=== PATIENT | male | born 1975 | race Two or more races ===

== ENCOUNTER 2017-04-08 08:36 | Observation (INO) | payer SELFPAY ==
--- NOTE | 2017-04-08 08:51 | EDPHY ---
H & P Stated Complaint: chills body aches chest pain to back Time Seen by Provider: 04/08/17 08:44 HPI/ROS: CHIEF COMPLAINT: Chills, vomiting, chest pain HISTORY OF PRESENT ILLNESS: The patient is a healthy 41-year-old male who presents to the emergency department after 2 discrete episodes of upper chest pain which radiated to his neck/back. He had an episode 2 days ago which lasted 1 hour. He had an episode that returned earlier today and has been present for the past 3 hours. His symptoms have improved currently based upon his initial reported severity of a 02/13. The patient reports that on he also experienced vomiting and a temperature to 100.5 degrees. The patient denies any recent dental work or infection. The patient denies any travel outside the [place]. The patient has had a slight dry cough. The patient denies abdominal pain or diarrhea. The patient denies any drug or alcohol use. The patient does report a history of heart disease in his father. His father developed coronary disease in his 40s requiring bypass in his 50s. REVIEW OF SYSTEMS: A comprehensive 10 point review of systems is otherwise negative aside from elements mentioned in the history of present illness. Source: Patient Exam Limitations: No limitations - Personal History Current Tetanus/Diphtheria Vaccine: Unsure Current Tetanus Diphtheria and Acellular Pertussis (TDAP): Unsure - Medical/Surgical History Hx Asthma: No Hx Chronic Respiratory Disease: No Hx Diabetes: No Hx Cardiac Disease: No Hx Renal Disease: No Hx Cirrhosis: No Hx Alcoholism: No Hx HIV/AIDS: No Hx Splenectomy or Spleen Trauma: No Other PMH: GERD - Social History Smoking Status: Never smoked - Physical Exam Exam: General Appearance: Alert, no distress Eyes: Pupils equal and round no pallor or injection ENT, Mouth: Mucous membranes moist Respiratory: There are no retractions, lungs are clear to auscultation Cardiovascular: Regular rate and rhythm Gastrointestinal: Abdomen is soft and nontender, no masses, bowel sounds normal Neurological: A&O, normal motor function, normal sensory exam, normal cranial nerves Skin: Warm and dry, no rashes Musculoskeletal: Neck is supple nontender Extremities: symmetrical, full range of motion Constitutional: Initial Vital Signs Temperature (C) 37 C 04/08/17 08:40 Heart Rate 64 04/08/17 08:40 Respiratory Rate 16 04/08/17 08:40 Blood Pressure 133/75 H 04/08/17 08:40 O2 Sat (%) 98 04/08/17 08:40 O2 Delivery Mode Room Air Allergies/Adverse Reactions: No Known Allergies Allergy (Unverified 04/08/17 08:42) Medical Decision Making - Diagnostics EKG Interpretation: EKG: Complete interpretation has been separately recorded in the [employer] archive. Summary impression: Sinus rhythm Imaging Results: Imaging Impressions Chest X-Ray 04/08/17 08:58 Impression: Normal chest. ED Course/Re-evaluation: The patient presents to the ED for evaluation of 2 episodes of chest discomfort. The patient has been symptom free throughout his stay in the ED. His last episode of chest pain began earlier today. The patient's EKG demonstrates no evidence of ischemia the patient's troponin normal x2. Chest x- ray demonstrates no evidence of an acute disease in the remainder of the patient 's laboratory studies and respiratory pathogen panel are normal. I did consult with Dr. Mcginnis from Cardiology given the patient's family history of heart disease. He evaluated the patient in the emergency department and feels we should admitted to the hospital for observation this evening and stress testing tomorrow. Consultation was made with the hospitalist service. The patient will be admitted primarily by Dr. Villegas. Differential Diagnosis: Differential diagnosis considered includes acute coronary syndrome, pericarditis , myocarditis, esophageal spasm, viral syndrome, pneumonia - Data Points Laboratory Results: Laboratory Results 04/08/17 08:55 04/08/17 08:55 04/08/17 04/08/17 04/08/17 10:56 08:55 08:55 WBC 5.78 10^3/uL 10^3/uL (3.80-9.50) RBC 4.98 10^6/uL 10^6/uL (4.40-6.38) Hgb 15.4 g/dL g/dL (13.7-17.5) Hct 44.4 % % (40.0-51.0) MCV 89.2 fL fL (81.5-99.8) MCH 30.9 pg pg (27.9-34.1) MCHC 34.7 g/dL g/dL (32.4-36.7) RDW 12.3 % % (11.5-15.2) Plt Count 230 10^3/uL 10^3/uL (150-400) MPV 9.6 fL fL (8.7-11.7) Neut % (Auto) 59.3 % % (39.3-74.2) Lymph % (Auto) 27.2 % % (15.0-45.0) [place] % (Auto) 11.2 % % (4.5-13.0) Eos % (Auto) 1.7 % % (0.6-7.6) Baso % (Auto) 0.3 % % (0.3-1.7) Nucleat RBC Rel Count 0.0 % % (0.0-0.2) Absolute Neuts (auto) 3.42 10^3/uL 10^3/uL (1.70-6.50) Absolute Lymphs (auto) 1.57 10^3/uL 10^3/uL (1.00-3.00) Absolute Monos (auto) 0.65 10^3/uL 10^3/uL (0.30-0.80) Absolute Eos (auto) 0.10 10^3/uL 10^3/uL (0.03-0.40) Absolute Basos (auto) 0.02 10^3/uL 10^3/uL (0.02-0.10) Absolute Nucleated RBC 0.00 10^3/uL 10^3/uL (0-0.01) Immature Gran % 0.3 % % (0.0-1.1) Immature Gran # 0.02 10^3/uL 10^3/uL (0.00-0.10) Sodium 141 mEq/L mEq/L (134-144) Potassium 3.5 mEq/L mEq/L (3.5-5.2) Chloride 104 mEq/L mEq/L (97-110) Carbon Dioxide 24 mEq/l mEq/l (22-31) Anion Gap 13 mEq/L mEq/L (8-16) BUN 18 mg/dL mg/dL (7-23) Creatinine 0.9 mg/dL mg/dL (0.7-1.3) Estimated GFR > 60 Glucose 103 mg/dL H mg/dL (70-100) Calcium 9.5 mg/dL mg/dL (8.5-10.4) Total Bilirubin Conjugated Bilirubin Unconjugated Bilirubin AST ALT Alkaline Phosphatase Troponin I < 0.012 ng/mL ng/mL < 0.012 ng/mL ng/mL (0.000-0.034) (0.000-0.034) Total Protein Albumin Lipase 04/08/17 08:51 WBC RBC Hgb Hct MCV MCH MCHC RDW Plt Count MPV Neut % (Auto) Lymph % (Auto) [place] % (Auto) Eos % (Auto) Baso % (Auto) Nucleat RBC Rel Count Absolute Neuts (auto) Absolute Lymphs (auto) Absolute Monos (auto) Absolute Eos (auto) Absolute Basos (auto) Absolute Nucleated RBC Immature Gran % Immature Gran # Sodium Potassium Chloride Carbon Dioxide Anion Gap BUN Creatinine Estimated GFR Glucose Calcium Total Bilirubin 0.7 mg/dL mg/dL (0.1-1.4) Conjugated Bilirubin 0.3 mg/dL mg/dL (0.0-0.5) Unconjugated Bilirubin 0.4 mg/dL mg/dL (0.0-1.1) AST 18 IU/L IU/L (17-59) ALT 28 IU/L IU/L (21-72) Alkaline Phosphatase 59 IU/L IU/L (38-126) Troponin I Total Protein 7.3 g/dL g/dL (6.3-8.2) Albumin 4.4 g/dL g/dL (3.5-5.0) Lipase 120 IU/L IU/L (23-300) Microbiology Results: MICROBIOLOGY 04/08/17 09:10 Nasal, Sinus - Swab Respiratory Panel (PCR) - Final No Organism Detected Medications Given: Discontinued Medications Ketorolac Tromethamine (Toradol) 15 mg IVP EDNOW ONE Stop: 04/08/17 11:35 Last Admin: 04/08/17 11:41 Dose: 15 mg Departure - Departure Disposition: [facility] Inpatient Acute Clinical Impression: Acute chest pain Condition: Good Referrals: NONE *PRIMARY CARE P,. [Primary Care Provider] - As per Instructions
--- NOTE | 2017-04-08 08:54 | CPEKG ---
Heart Rate: 55 RR Interval: 1091 P-R Interval: 200 QRSD Interval: 86 QT Interval: 396 QTC Interval: 379 P Cheriton: 66 QRS Cheriton: 81 T Wave Cheriton: 54 EKG Severity - NORMAL ECG - EKG Impression: SINUS RHYTHM Electronically Signed By: David Huston 08-Apr-2017 09:44:18
[2017-04-08 09:07] LABS: % IMMATURE GRANULYOCYTES 0.3 % (0.0-1.1); ABSOLUTE IMMATURE GRANULOCYTES 0.02 10^3/uL (0.00-0.10); ADD DIFF? NO; ADD MORPH? NO; ADD SCAN? NO; ATYPICAL LYMPHOCYTE FLAG 0 (0-99); FRAGMENT RBC FLAG 0 (0-99); HEMATOCRIT 44.4 % (40.0-51.0); HEMOGLOBIN 15.4 g/dL (13.7-17.5); LEFT SHIFT FLG 0 (0-99); LIPEMIA HEMOLYSIS FLAG 90 (0-99); MEAN CELL HEMOGLOBIN 30.9 pg (27.9-34.1); MEAN CELL HEMOGLOBIN CONCENTR. 34.7 g/dL (32.4-36.7); MEAN CELL VOLUME 89.2 fL (81.5-99.8); MEAN PLATELET VOLUME 9.6 fL (8.7-11.7); PLATELET CLUMPS FLAG 0 (0-99); PLATELET COUNT 230 10^3/uL (150-400); RED BLOOD CELL COUNT 4.98 10^6/uL (4.40-6.38); RED CELL DISTRIBUTION WIDTH 12.3 % (11.5-15.2)
[2017-04-08 09:18] LABS: ANION GAP 13 mEq/L (8-16); CALCIUM 9.5 mg/dL (8.5-10.4); CARBON DIOXIDE 24 mEq/l (22-31); CHLORIDE 104 mEq/L (97-110); CREATININE 0.9 mg/dL (0.7-1.3); GLOMERULAR FILTRATION RATE > 60; GLUCOSE 103 mg/dL (70-100); POTASSIUM 3.5 mEq/L (3.5-5.2); SODIUM 141 mEq/L (134-144)
[2017-04-08 09:30] LABS: TROPONIN I < 0.012 ng/mL (0.000-0.034)
[2017-04-08] MEDS ORDERED: KETOROLAC 15 MG/1 ML SDV IVP ONE (11:34)
[2017-04-08 11:50] LABS: ALBUMIN 4.4 g/dL (3.5-5.0); BILIRUBIN,TOTAL 0.7 mg/dL (0.1-1.4); BILIRUBIN-CONJUGATED 0.3 mg/dL (0.0-0.5); BILIRUBIN-UNCONJUGATED 0.4 mg/dL (0.0-1.1); TOTAL PROTEIN 7.3 g/dL (6.3-8.2)
[2017-04-08] MEDS ORDERED: ASPIRIN EC 81 MG TAB PO PRN (13:41)
--- NOTE | 2017-04-08 16:22 | ASMTCMCOM ---
CM Note CM Note Notes: Case Management: Met with patient to discuss concerns for ER visit/hospitalization due to recent unemployment. Patient tells CM that he was insured through his employeer but has been without this insurance for 3 weeks. He states that he was on the [employer] Website this morning and has started a Medicaid application. 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 Patient verbalizes understanding and agrees to follow though with recommended hospitalization/care Date Signed: 04/08/2017 04:21 PM Electronically Signed By:Tari Laureano
--- NOTE | 2017-04-08 16:53 | PDGENHP ---
History and Physical History and Physical: HISTORY AND PHYSICAL CC: Chest pain HISTORY: This patient who is generally quite healthy comes into the ER today after 2 episodes of chest discomfort. The 1st was 2 nights ago when he awakened at 3 o' clock in the morning. He had a pressure in the upper anterior sternal area that felt like someone sitting on his chest. This is associated with some nausea and diaphoresis. He got up out of bed and started walking around and the pain evolved to include the some interscapular area as well as his neck. It eventually subsided after perhaps 45 minutes or an hour. He then started having more shivering and had actually a fever of 100.5 degrees. He went back to sleep and woke up and felt fine and had a good day yesterday. However again he awakened early this morning with the same pressure in his upper anterior chest that radiated again to his back and his neck. This symptom resolved but because of these symptoms and family history of heart disease he came in for assessment in the ER. He feels fine at this time. ROS: A comprehensive 10 system review revealed no other significant findings PAST MEDICAL HISTORY: Overall very healthy FAMILY MEDICAL HISTORY: Coronary disease in at least 2 family members prematurely SOCIAL HISTORY: Recently lost his job and so was without insurance and he is worried about the cost of his healthcare here. No tobacco or alcohol or cocaine or meth He is MEDICATIONS: The patients list has been reconciled by our clinical pharmacist in the EMR. I have reviewed the list and ordered appropriate medicines. 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, no focal weakness IV site: looks normal LABORATORY DATA: 1st troponin in the ER is normal and other labs unremarkable RADIOLOGY STUDIES: I reviewed chest x-ray images done in the ER, my interpretation: Normal chest x -ray two view 12 LEAD EKG: My personal reading of the EKG tracing: Sinus rhythm with no ischemic or other significant abnormalities ASSESSMENT: Chest pain with features typical of coronary disease, at rest, in a patient with significant family history of coronary disease including bypass in his father in his early 50s No current evidence on initial assessment in the ER of ischemia or infarct, and no arrhythmia or hemodynamic instability so far PLANS: 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 I have reviewed the patient's past medical records as part of this assessment, including
--- NOTE | 2017-04-08 18:38 | GCON ---
[f rep st] CONSULTATION REASON FOR CONSULTATION: Chest pain. HISTORY OF PRESENT ILLNESS: This is a 41-year-old patient who is generally very healthy. He has a family history of coronary artery disease and bypass surgery at a young age, comes to the emergency room after 2 episodes of chest discomfort. The 1st episode was 2 nights back when he woke up at 3 a .m. in the morning with pressure in the upper anterior sternal area that felt like something sitting on his chest associated with nausea and diaphoresis. He got out of bed and started walking around and pain evolved to include some interscapular region as well as the neck. It eventually subsided a fter about 45 minutes. He then started having more shivering and actually had fever of 100.5. He w ent back to sleep and woke up and felt fine and had a good day yesterday. However, he woke up again on the day of admission with the same pressure in the upper anterior chest that radiated to his back and neck. Symptoms resolved, but the symptoms and the family history mad e him come to the emergency room. At the time of my assessment he was back to feeling pain-free. He denies any shortness of breath as sociated nor lightheadedness or dizziness. No presyncope or syncope associated with it. PAST MEDICAL HISTORY: None. MEDICATIONS: None. FAMILY HISTORY: Coronary artery disease in at least 2 family members prematurely. Father had bypass surgery by the time he was 55 with having had a myocardial infarction at the age of 40. SOCIAL HISTORY: Recently lost his job and his insurance. No tobacco use. No alcohol use, is [facility]. MEDICATIONS: Evaluated. ALLERGIES: None. PHYSICAL EXAMINATION: VITAL SIGNS: Blood pressure of 130/60, pulse of 60, respiratory rate 16. HEENT: Pupils equal, reacting to light, accommodating. HEENT normal. NECK: No masses, JVD. CHEST: Good air entry, bilaterally equal. No rales, rhonchi. CARDIOVASCULAR: S1, S2 regular. No S3, no murmurs. ABDOMEN: Soft, nontender. No guarding or rig idity. Bowel sounds present. EXTREMITIES: No edema. Cardiac enzymes x2 negative. EKG shows normal sinus rhythm, with no ST changes. IMPRESSION AND PLAN: The patient's family history of coronary artery disease is concerning , hence we will admit the patient to the hospital and monitor him. After 3 sets of negative enzymes we will perform a stress test. Further treatment as per the results of the stress test. Thank you for letting me participate in the patient's care. /[id number]/MODL
--- NOTE | 2017-04-09 09:21 | ASMTCMCOM ---
CM Note CM Note Notes: Reviewed chart and spoke w/RN. No case management d/c needs identified d/t pt age,activilty levels prior to admission and no therapies evaluations ordered. Case Management d/c poc: home independent when medically stable w/follow up appointments as directed. Case management available if needs change. Date Signed: 04/09/2017 09:20 AM Electronically Signed By:Adela Hunter
--- NOTE | 2017-04-09 12:08 | CPR ---
[f rep st] NONINVASIVE CARDIAC PROCEDURE REPORT PROCEDURE PERFORMED: Stress EKG, result of myocardial perfusion imaging pending. INDICATION: Chest pain of unknown etiology with respect of family history of coronary artery diseas e. PROCEDURE: The patient was prepared, walked on the treadmill on modified [place]o protocol. The patie nt walked for a total of 12 minutes and achieved maximum heart rate of 186 beats per minute which wa s 105% of maximum predicted heart rate. No ST-T changes noted. Normal increase in the blood pressu re. Rocha treadmill score of 12, which indicates low risk for cardiovascular mortality. CONCLUSION: Normal stress EKG with myocardial perfusion imaging. /[id number]/MODL
[2017-04-09 12:56] VITALS: BP 129/89; PULSE 69; RESP 15; TEMP 98.1; O2SAT 96
--- NOTE | 2017-04-09 16:21 | ASDISCHSUM ---
Discharge Information Plan Status:Home with No Needs Medically Cleared to Leave: Discharge Date:04/09/2017 03:15 PM CM D/C Disposition:Home, Routine, Self-Care ADT D/C Disposition:Home, Routine, Self-Care Projected Discharge Date:04/09/2017 03:15 PM Transportation at D/C: Discharge Delay Reason: Follow-Up Date:04/09/2017 03:15 PM Discharge Slot: Final Diagnosis: Placement Information Patient Contact Information Contact Name:MILLY Relationship: Address: Work Phone: City: [facility] Phone: State/[place] Code: Email: Financial Information Financial Class:Self-Pay Primary Plan Desc:SELF PAY Primary Plan Number: Secondary Plan Desc: Secondary Plan Number: Assessment Information [facility] Progress Note CM Note CM Note Notes: Case Management: Met with patient to discuss concerns for ER visit/hospitalization due to recent unemployment. Patient tells CM that he was insured through his employeer but has been without this insurance for 3 weeks. He states that he was on the [employer] Website this morning and has started a Medicaid application. 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 Patient verbalizes understanding and agrees to follow though with recommended hospitalization/care Date Signed: 04/08/2017 04:21 PM Electronically Signed By:Tari Laureano [facility] CM Progress Note CM Note CM Note Notes: Reviewed chart and spoke w/RN. No case management d/c needs identified d/t pt age,activilty levels prior to admission and no therapies evaluations ordered. Case Management d/c poc: home independent when medically stable w/follow up appointments as directed. Case management available if needs change. Date Signed: 04/09/2017 09:20 AM Electronically Signed By:Adela Hunter Intervention Information
--- NOTE | 2017-04-09 17:07 | PDDCSUM ---
Discharge Summary Discharge Summary: DISCHARGE DIAGNOSES: -chest pain, resolved -ruled out for myocardial infarction -no findings of cardiac dysfunction, arrhythmia, or ischemia on monitoring and treadmill stress testing with myocardial perfusion imaging CONSULTANTS: Dr. Kael Mcginnis, PROCEDURES: Treadmill stress testing with myocardial perfusion imaging HOSPITAL COURSE SUMMARY: This patient came to the hospital after 2 episodes of chest pain that had some anginal component. He also had some fever. His chest pain and fever had resolved but by the time he got here and did not recur during his hospital stay here. The he rule out for myocardial infarction, did not have arrhythmia, did not have hemodynamic abnormalities, did not have any symptoms or signs of ischemia. There was no heart failure. He exercised to 12 minutes on treadmill without any symptoms or abnormalities of vital signs and his myocardial perfusion images did not demonstrate any concerning abnormalities. Reviewed all this in detail with Dr. Da Silva. The patient is stable for discharge to home at this time. He is not prescribed any new medications. He is to follow up with Dr. Esquivel his primary care physician as needed. PENDING TEST RESULTS: None MEDICATION CHANGES: None FOLLOW-UP PLAN: With Dr. Esquivel as needed
== END 2017-04-09 15:15 | disposition home or self-care (01) ==
LOC: F2W 16:54
PROVIDERS: ADMIT Internal Medicine; ATTEND Internal Medicine
DX: R07.9 Chest pain, unspecified (principal); K21.9 Gastro-esophageal reflux disease without esophagitis; Z82.49 Family history of ischemic heart disease and other diseases of the circulatory system
CPT/HCPCS: 96374; A9500; G0378; J1885